=== PATIENT | female | born 1965 | race Caucasian/White ===

== ENCOUNTER 2017-12-02 08:20 | Outpatient (REF) | payer BC, SELFPAY ==
[2017-12-02 14:21] LABS: Absolute Basophil Count 0.06 k/cumm (0.0-0.2); Absolute Eosinophil Count 0.13 k/cumm (0.0-0.7); Absolute Lymphocyte Count 3.01 k/cumm (1.2-3.4); Absolute Monocyte Count 0.95 k/cumm (0.11-0.7); Basophils % 0.6; Eosinophils % 1.3; HCT 43.5 % (36.0-46.0); HGB 14.5 g/dL (12.0-15.5); Lymphocytes % 30.6; Mean Corp. HGB Concentration 33.3 g/dL (32.0-36.0); Mean Corpuscular Hemoglobin 30.3 pg (27.0-33.0); Mean Platelet Volume 10.9 fL (8.0-11.0); Monocytes % 9.6; Neutrophils % 56.9; Platelet Count 290 x1000/uL (130-400); RBC 4.78 m/cumm (4.00-5.20); White Blood Cell Count 9.85 k/cumm (4.4-10.8)
[2017-12-02 14:29] LABS: ALT 185 U/L (12-78); AST 73 U/L (15-37); Albumin 3.6 g/dL (3.4-5.0); Alkaline Phosphatase 113 U/L (46-116); Anion Gap 10.9 mmol/L (3-11); BUN 21 mg/dL (7-18); Bilirubin, Total 0.4 mg/dL (0.2-1.0); CO2 24.1 mmol/L (21.0-32.0); CREATININE 1.08 mg/dL (0.55-1.02); Calcium 8.9 mg/dL (8.5-10.1); Chloride 105 mmol/L (98-107); Cholesterol 283 mg/dL (50-200); Estimated GFR 53.28 (mL/min/1.73m2); Glucose 108 mg/dL (70-100); HDL Cholesterol 42 mg/dL (40-60); LDL CHOLESTEROL 174 mg/dL (<100); Potassium 4.4 mmol/L (3.5-5.1); Sodium 140 mmol/L (136-145); Triglyceride 430 mg/dL (30-150)
[2017-12-03 10:57] LABS: Hepatitis C Ab w Rflx HCV PCR Negative (NEGAT)
== END 2017-12-02 08:40 ==
LOC: NCHCN 08:20
PROVIDERS: PCP Family Medicine; Visit Provider Nurse Practitioner
DX: Z00.00 Encounter for general adult medical examination without abnormal findings (principal); Z13.220 Encounter for screening for lipoid disorders; Z11.59 Encounter for screening for other viral diseases; M79.18 Myalgia, other site
CPT/HCPCS: 80053; 80061; 83721; 86803; 85025

== ENCOUNTER 2017-12-17 09:51 | Outpatient (REF) | payer BC, SELFPAY ==
[2017-12-17 16:35] LABS: Iron 73 ug/dL (50-175); Total Iron Binding Capacity 293 ug/dL (250-450); Transferrin Sat 25 % (15-50)
[2017-12-17 16:51] LABS: ALT 97 U/L (12-78); AST 46 U/L (15-37); Alkaline Phosphatase 107 U/L (46-116); Anion Gap 10.2 mmol/L (3-11); BUN 20 mg/dL (7-18); Bilirubin, Total 0.5 mg/dL (0.2-1.0); CO2 26.8 mmol/L (21.0-32.0); CREATININE 1.09 mg/dL (0.55-1.02); Calcium 9.3 mg/dL (8.5-10.1); Chloride 102 mmol/L (98-107); Estimated GFR 52.71 (mL/min/1.73m2); Ferritin 377 ng/mL (8-388); Glucose 98 mg/dL (70-100); Potassium 4.1 mmol/L (3.5-5.1); Sodium 139 mmol/L (136-145); TSH (W/Ref FT4) 2.31 uIU/mL (0.358-3.74); Total Protein 7.3 g/dL (6.4-8.2)
[2017-12-20 11:26] LABS: HBs Antibody, Quant <3.1 mIU/mL; Hepatitis B Surface Ab Negative; Hepatitis B Surface Ag Negative (NEGAT)
[2017-12-20 11:29] LABS: Hep B Core Antibody Negative (NEGAT)
== END 2017-12-17 10:11 ==
LOC: NCHCN 09:51
PROVIDERS: PCP Family Medicine; Visit Provider Nurse Practitioner
DX: R79.89 Other specified abnormal findings of blood chemistry (principal)
CPT/HCPCS: 80053; 86704; 86706; 87340; 82728; 83540; 83550; 84443

== ENCOUNTER 2017-12-23 00:27 | Outpatient (CLI) | payer BC, SELFPAY ==
--- NOTE | 2017-12-23 07:30 | DI.US_ITS ---
SYMPTOM/DIAGNOSIS: ELEVATED LFT'S,R79.89 ABDOMEN ULTRASOUND: The aorta and vena cava are normal. The liver measures 13.8 cm. in maximal diameter and is echogenic. The portal vein is intact. The patient is status post cholecystectomy. The common duct caliber is 6.1 mm. The pancreas is intact. The spleen is intact. The right kidney measures 11.4 cm. The left kidney measures 11.1 cm. There are multiple parapelvic cysts. SUMMARY: Findings consistent with a fatty liver. Patient is status post cholecystectomy. The caliber of the common duct is presumably on a post surgical basis. Nil else.
== END 2017-12-23 00:47 ==
PROVIDERS: PCP Family Medicine; Visit Provider Nurse Practitioner
DX: R79.89 Other specified abnormal findings of blood chemistry (principal); K76.0 Fatty (change of) liver, not elsewhere classified; Z90.49 Acquired absence of other specified parts of digestive tract
CPT/HCPCS: 76700

== ENCOUNTER 2018-01-14 13:09 | Outpatient (REF) | payer BC, SELFPAY ==
[2018-01-14 13:55] LABS: ALT 103 U/L (12-78); AST 37 U/L (15-37); Alkaline Phosphatase 115 U/L (46-116); Anion Gap 9.6 mmol/L (3-11); BUN 20 mg/dL (7-18); Bilirubin, Total 0.4 mg/dL (0.2-1.0); CO2 26.4 mmol/L (21.0-32.0); CREATININE 0.92 mg/dL (0.55-1.02); Calcium 9.1 mg/dL (8.5-10.1); Chloride 103 mmol/L (98-107); Glucose 104 mg/dL (70-100); Potassium 4.2 mmol/L (3.5-5.1); Sodium 139 mmol/L (136-145); Total Protein 7.2 g/dL (6.4-8.2)
== END 2018-01-14 13:29 ==
LOC: NCHCN 13:09
PROVIDERS: PCP Family Medicine; Visit Provider Nurse Practitioner
DX: K76.0 Fatty (change of) liver, not elsewhere classified (principal)
CPT/HCPCS: 80053

== ENCOUNTER 2018-03-21 12:27 | Outpatient (REF) | payer BC, SELFPAY ==
[2018-03-21 13:38] LABS: ALT 41 U/L (12-78); AST 22 U/L (15-37); Albumin 3.5 g/dL (3.4-5.0); Alkaline Phosphatase 91 U/L (46-116); Bilirubin, Total 0.3 mg/dL (0.2-1.0); Total Protein 6.7 g/dL (6.4-8.2)
== END 2018-03-21 12:47 ==
LOC: LBN 12:27
PROVIDERS: PCP Family Medicine; Visit Provider Nurse Practitioner
DX: K76.0 Fatty (change of) liver, not elsewhere classified (principal); R79.89 Other specified abnormal findings of blood chemistry
CPT/HCPCS: 80076

== ENCOUNTER 2018-06-30 01:32 | Outpatient (CLI) | payer BC, SELFPAY ==
--- NOTE | 2018-06-30 10:52 | DI.MAMMO_ITS ---
SYMPTOMS/DIAGNOSIS: SCREENING, Z12.39 MAMMOGRAMS: Mammograms were interpreted according to the usual protocol including computer analysis with CAD system, tomosynthesis and C view imaging. The breasts are of moderate density with fairly symmetrical distribution of fibroglandular tissue. No dominant mass or clumped microcalcification is identified in either breast. Areas of asymmetric density in the upper outer quadrant of each breast appear unchanged in comparison with in comparison with previous examination of June 2017. CONCLUSION: No specific evidence of malignancy at this time. Routine screening examinations are suggested at yearly intervals in this age group according to the ACS/ACR guidelines. Category 1, breast density category B. MQSA ASSESSMENT OF FINDINGS: Negative. Category 1. Patient will receive a letter notifying them of these results. BI-RADS category B. There are scattered areas of fibroglandular density.
== END 2018-06-30 01:52 ==
PROVIDERS: PCP Family Medicine; Visit Provider Nurse Practitioner Family
DX: Z12.31 Encounter for screening mammogram for malignant neoplasm of breast (principal)
CPT/HCPCS: 77063; 77067

== ENCOUNTER 2020-02-22 14:11 | Outpatient (REF) | payer MEDICAID, SELFPAY ==
[2020-02-22 16:26] LABS: Hemoglobin A1C 5.4 % (<5.7)
[2020-02-22 16:32] LABS: ALT 33 U/L (14-59); AST 19 U/L (15-37); Calculated LDL 80 mg/dL (<100); Cholesterol 160 mg/dL (<200); HDL Cholesterol 56 mg/dL (40-60); Triglyceride 120 mg/dL (<150)
== END 2020-02-22 14:31 ==
LOC: NCHCN 14:11
PROVIDERS: PCP Family Medicine; Visit Provider Nurse Practitioner Family
DX: R73.03 Prediabetes (principal); E78.5 Hyperlipidemia, unspecified
CPT/HCPCS: 80061; 83036; 84450; 84460

== ENCOUNTER 2020-03-26 01:14 | Outpatient (CLI) | payer MEDICAID, SELFPAY ==
--- NOTE | 2020-03-26 10:05 | DI.MAMMO_ITS ---
EXAM: MG MAMMO DIAGNOSTIC BI and U/S breast RT limited CLINICAL HISTORY: DIAGNOSTIC, TENDER, PALPABLE AREA RT BREAST,N64.59. TECHNIQUE: Craniocaudal and mediolateral oblique Full Field Digital Mammography views with Computer Aided Diagnosis followed by Tomosynthesis and right breast ultrasound. COMPARISON: Priors are available for comparison. FINDINGS: Mammography/Tomosynthesis: Masses/Architectural Distortion: None seen. Microcalcifictions: No suspicious pleomorphic-type are seen. Skin Thickening/Nipple Retraction: None. Right breast US: A targeted right breast ultrasound was performed in the area of palpable abnormality . Echotexture: Normal appearance of the glandular tissue. Shadowing: No suspicious foci. Cyst: None. Solid lesions: None seen. Ductal dilation: None. IMPRESSION: 1. No evidence of malignancy is noted. A negative mammogram and ultrasound should not preclude biopsy of a clinically suspicious mass. 2. Unless there is more urgent need, follow-up screening mammography is recommended, as per [place] [employer] guidelines. 3. The findings were discussed with the patient on the date of the examination. BI-RADS Category 1 - Negative Breast Density - Category B - Scattered areas of fibroglandular density Breast density Category C or D implies that the patient has dense breast tissue. Dense breast tissue can make it harder to find cancer on a mammogram. Dense breast tissue is also associated with an incr eased risk of breast cancer. This information about the result of the mammogram report was provided to the patient to raise their awareness. Use this report when you speak with the patient about their risks for breast cancer, which includes their family history. At that time, you may recommend additional screening tests (Ultrasoun d or MRI) as these tests may add significant information. A negative radiographic report should not delay biopsy if a dominant or clinically suspicious mass is present. Up to ten percent of cancers are not identified on mammography. A negative report may reinforce clinical impression. Adenosis and dense breasts may obscure an underlying neoplasm. False positive reports average 6 to 10%. Patient will receive a letter notifying them of these results.
== END 2020-03-26 01:15 ==
LOC: DI 01:14
PROVIDERS: PCP Family Medicine; Visit Provider Nurse Practitioner Family
DX: Z12.31 Encounter for screening mammogram for malignant neoplasm of breast (principal); N64.59 Other signs and symptoms in breast
CPT/HCPCS: 76642; 77062; 77066; G0279

== ENCOUNTER 2021-08-14 11:56 | Outpatient (REF) | payer MEDICAID, SELFPAY ==
--- NOTE | 2021-08-14 10:30 | PAPFT_PTH ---
PATIENT: Evelia Olson LOC: [facility]#:[id number] AGE/SX: 56/F ROOM: RE08/14/[address]: Lesly Cuellar : 1965 BED: DIS: 08/14/2021 SPEC #: [id number] RECD: 08/14/21 18:29 STATUS: CARO REQ #: [id number] NAT: 08/14/21 10:[address]: Lesly Cuellar DEPT: [facility] Cytology RECD BY: Bettina Blackburn ENTERED: 08/14/21 18:29 SP TYPE: PAPFT OTHR DR: Shawanda Wilhelm Tissues: 1 - CX/ENDOCX FOR PAP SMEARS Procedures: PAP THIN PREP/UVM Screening HPV DNA PROBE Comments: [id number]
[2021-08-14 15:37] LABS: HCT 43.7 % (36.0-46.0); HGB 14.5 g/dL (11.2-15.7); MCH 30.1 pg (27.0-33.0); MCHC 33.2 % (32.0-36.0); MCV 91 fL (80-95); MPV 10.7 fL (8.0-11.0); Platelet Count 282 10^3/uL (130-400); RBC 4.81 10^6/uL (3.93-5.22); RDW 12.5 % (11.7-14.6); RDW-SD 41.3 fL; WBC 10.46 10^3/uL (4.4-10.8)
[2021-08-14 16:39] LABS: ALT 79 U/L (14-59); AST 40 U/L (15-37); Albumin 3.9 g/dL (3.4-5.0); Alkaline Phosphatase 81 U/L (46-116); Anion Gap 9.3 mmol/L (3-11); BUN 25 mg/dL (7-18); Bilirubin, Total 0.4 mg/dL (0.2-1.0); CO2 25.7 mmol/L (21.0-32.0); Chloride 103 mmol/L (98-107); Estimated GFR 57.35 (mL/min/1.73m2); Glucose 96 mg/dL (74-106); Potassium 4.4 mmol/L (3.5-5.1); Sodium 138 mmol/L (136-145); Total Protein 6.8 g/dL (6.4-8.2)
[2021-08-14 16:51] LABS: Calculated LDL 165 mg/dL (<100); Cholesterol 251 mg/dL (<200); HDL Cholesterol 46 mg/dL (40-60); Triglyceride 202 mg/dL (<150)
[2021-08-14 16:53] LABS: Hemoglobin A1C 5.8 % (<5.7)
== END 2021-08-14 11:57 | disposition home or self-care (01) ==
LOC: NCHCN 11:56
PROVIDERS: PCP Family Medicine; Visit Provider Nurse Practitioner Family
DX: R73.03 Prediabetes (principal); K76.0 Fatty (change of) liver, not elsewhere classified; E78.5 Hyperlipidemia, unspecified; R79.89 Other specified abnormal findings of blood chemistry; Z00.00 Encounter for general adult medical examination without abnormal findings; Z12.4 Encounter for screening for malignant neoplasm of cervix
CPT/HCPCS: 80053; 80061; 85027; 88142; 83036; 87624

== ENCOUNTER → 2021-08-21 01:41 | Outpatient (CLI) | payer MEDICAID, SELFPAY ==
--- NOTE | 2021-08-21 15:30 | DI.MAMMO_ITS ---
Exam(s) MAMMO SCREENING EXAM: MAMMO SCREENING CLINICAL HISTORY: SCREENING FOR BREAST CA, Z12.39. TECHNIQUE: Bilateral full field digital CC and MLO mammographic images were obtained with 3D tomosyn thesis and utilizing computer aided detection (CAD). COMPARISON: Prior mammograms were reviewed, the most recent being March 2020. FINDINGS: There has been no significant change in the appearance and distribution of the fibroglandular tissue. No new CAD designations. Asymmetric tissue in the upper-outer quadrant right breast is unchanged There are no new spiculated masses nor malignant appearing microcalcification groups. There is no significant architectural distortion nor skin thickening-retraction. IMPRESSION: No radiographic evidence of malignancy. BI-RADS Category 1 - Negative Breast Density - Category B - Scattered areas of fibroglandular density Breast density Category C or D implies that the patient has dense breast tissue. Dense breast tissue can make it harder to find cancer on a mammogram. Dense breast tissue is also associated with an incr eased risk of breast cancer. This information about the result of the mammogram report was provided to the patient to raise their awareness. Use this report when you speak with the patient about their risks for breast cancer, which includes their family history. At that time, you may recommend additional screening tests (Ultrasoun d or MRI) as these tests may add significant information. A negative radiographic report should not delay biopsy if a dominant or clinically suspicious mass is present. Up to ten percent of cancers are not identified on mammography. A negative report may reinforce clinical impression. Adenosis and dense breasts may obscure an underlying neoplasm. False positive reports average 6 to 10%. Patient will receive a letter notifying them of these results.
== END ==
PROVIDERS: PCP Family Medicine; Visit Provider Nurse Practitioner Family
DX: Z12.31 Encounter for screening mammogram for malignant neoplasm of breast (principal)
CPT/HCPCS: 77063; 77067

== ENCOUNTER 2022-06-30 18:28 | Outpatient (REF) | payer MEDICAID, SELFPAY ==
[2022-06-30 15:27] LABS: HCT 44.5 % (36.0-46.0); HGB 14.6 g/dL (11.2-15.7); MCH 29.3 pg (27.0-33.0); MCHC 32.8 % (32.0-36.0); MCV 89 fL (80-95); MPV 10.5 fL (8.0-11.0); Platelet Count 299 10^3/uL (130-400); RBC 4.98 10^6/uL (3.93-5.22); RDW 12.1 % (11.7-14.6); RDW-SD 39.6 fL; WBC 11.56 10^3/uL (4.4-10.8)
[2022-06-30 16:17] LABS: ALT 88 U/L (14-59); AST 39 U/L (15-37); Albumin 3.9 g/dL (3.4-5.0); Alkaline Phosphatase 102 U/L (46-116); Anion Gap 11.4 mmol/L (3-11); BUN 18 mg/dL (7-18); Bilirubin, Total 0.6 mg/dL (0.2-1.0); CO2 24.6 mmol/L (21.0-32.0); CREATININE 0.9 mg/dL (0.55-1.02); Calcium 9.1 mg/dL (8.5-10.1); Chloride 105 mmol/L (98-107); Estimated GFR 74.57 (mL/min/1.73m2); Glucose 104 mg/dL (74-106); Potassium 4.3 mmol/L (3.5-5.1); Sodium 141 mmol/L (136-145); Total Protein 7.2 g/dL (6.4-8.2)
[2022-06-30 17:20] LABS: Iron 63 ug/dL (50-170); Total Iron Binding Capacity 329 ug/dL (250-450); Transferrin Sat 19 % (15-50)
== END 2022-06-30 18:29 | disposition home or self-care (01) ==
LOC: NCHCN 18:28
PROVIDERS: PCP Family Medicine; Visit Provider Nurse Practitioner Family
DX: K76.0 Fatty (change of) liver, not elsewhere classified (principal); E66.8 Other obesity
CPT/HCPCS: 80053; 85027; 83540; 83550

== ENCOUNTER 2022-07-23 01:58 | Outpatient (CLI) | payer MEDICAID, SELFPAY ==
--- NOTE | 2022-07-23 | DI.US_ITS ---
Exam(s) US SOFT TISS ABD WALL/LOW BACK EXAM: US SOFT TISS ABD WALL/LOW BACK CLINICAL HISTORY: LYMPHADENOPATHY R59.0 BILAT LOWER BACK, MASS. TECHNIQUE: Ultrasound was performed using standard protocol. COMPARISON: No exams were available for comparison FINDINGS: Sonographic assessment utilizing grayscale and color Doppler imaging was performed and targeted to th e area of clinical concern. No cystic or solid masses identified. IMPRESSION: Negative targeted ultrasound. DATA REPOSITORY:
== END 2022-07-23 02:18 ==
LOC: DI 01:58
PROVIDERS: PCP Family Medicine; Visit Provider Nurse Practitioner Family
DX: R59.0 Localized enlarged lymph nodes (principal); M54.50 Low back pain, unspecified
CPT/HCPCS: 76705

== ENCOUNTER → 2022-09-23 01:49 | Outpatient (CLI) | payer MEDICAID, SELFPAY ==
--- NOTE | 2022-09-23 12:35 | DI.MAMMO_ITS ---
Exam(s) MAMMO SCREENING EXAM: MAMMO SCREENING CLINICAL HISTORY: SCREENING FOR BREAST CANCER Z12.39 Z12.31 TECHNIQUE: Mammograms were interpreted according to the usual protocol including computer analysis w [employer] CAD system, tomosynthesis and C-view imaging. COMPARISON: 2014 through 2021 FINDINGS: The breasts are composed of mainly fatty density , Breast Density category A. No suspicious masses or suspicious microcalcifications are seen. No skin thickening or abnormal axillary lymph nodes are seen. There has been no significant change from prior exams. IMPRESSION: BI-RADS Category 1, Negative mammogram Yearly screening mammography is recommended. Breast Density - Category A, fatty density. A negative radiographic report should not delay biopsy if a dominant or clinically suspicious mass is present. Up to ten percent of cancers are not identified on mammography. A negative report may reinforce clinical impression. Adenosis and dense breasts may obscure an underlying neoplasm. False positive reports average 6 to 10%. Patient will receive a letter notifying them of these results.
== END ==
PROVIDERS: PCP Family Medicine; Visit Provider Nurse Practitioner Family
DX: Z12.31 Encounter for screening mammogram for malignant neoplasm of breast (principal)
CPT/HCPCS: 77063; 77067

== ENCOUNTER → 2022-12-29 00:28 | Outpatient (CLI) | payer MEDICAID, SELFPAY ==
--- NOTE | 2022-12-29 09:31 | DI.RAD_ITS ---
Exam(s) XR KNEE RT 3V AP,LAT,DRISS EXAM: XR KNEE RT 3V AP,LAT,DRISS CLINICAL HISTORY: M25.569 Chronic knee pain bilat. TECHNIQUE: 2D digital imaging was performed. Three views. COMPARISON: No exams were available for comparison FINDINGS: BONES: No acute fracture is present. No bony destructive lesion is seen. JOINTS: The knee is normally aligned. No joint effusion is seen. Mild spurring at the articular aspe ct of the patella. SOFT TISSUE: Normal. IMPRESSION: Mild patellofemoral degenerative changes. DATA REPOSITORY: RADIATION DOSE DELIVERED:
--- NOTE | 2022-12-29 09:34 | DI.RAD_ITS ---
Exam(s) XR KNEE LT 3V AP,LAT,DRISS EXAM: XR KNEE LT 3V AP,LAT,DRISS CLINICAL HISTORY: M.569 Chronic bilat knee pain. TECHNIQUE: 2D digital imaging was performed. Three views. COMPARISON: CR XR KNEE RT 3V AP,LAT,DRISS from 12/29/2022 FINDINGS: BONES: No acute fracture is present. No bony destructive lesion is seen. JOINTS: The knee is normally aligned. No joint effusion is seen. Slight narrowing medial femoral ti bial joint space. Minimal spurring at the articular aspect of the patella. SOFT TISSUE: Normal. IMPRESSION: Mild degenerative changes. DATA REPOSITORY: RADIATION DOSE DELIVERED:
== END ==
PROVIDERS: PCP Family Medicine; Visit Provider Nurse Practitioner Family
DX: M17.0 Bilateral primary osteoarthritis of knee (principal)
CPT/HCPCS: 73562

== ENCOUNTER 2024-01-11 01:21 | Outpatient (CLI) | payer MEDICAID, SELFPAY ==
--- NOTE | 2024-01-11 | DI.US_ITS ---
Exam(s) US ABDOMEN LIMITED EXAM: US ABDOMEN LIMITED CLINICAL HISTORY: Steatosis of liver, K76.0, fatty change of liver not elsewhere classified TECHNIQUE: Ultrasound abdomen performed using standard protocol. COMPARISON: US US ABDOMEN from 12/23/2017 FINDINGS: PANCREAS: Normal where visualized. LIVER: There is diffuse increased echogenicity of the liver consistent with fatty infiltration. Hepa topetal flow in the Portal Vein. The liver measures in 18.1 cm length. No evidence of a hepatic mass. GALLBLADDER:Status post cholecystectomy. BILIARY SYSTEM: Common bile duct measures up to 1.0 mm. This can be seen in post cholecystectomy pat ients.. No intrahepatic biliary ductal dilation. RIGHT KIDNEY: Kidney is normal in size. No evidence of renal calculi. No evidence of hydronephrosis. No renal mass or cyst identified. In the renal pelvis there are few anechoic round areas present lik fadi reflecting parapelvic cysts. ASCITES: None seen. ABDOMINAL AORTA AND IVC: Visualized portions normal caliber. IMPRESSION: Mild hepatomegaly and hepatic steatosis. DATA REPOSITORY:
--- NOTE | 2024-01-11 08:16 | DI.MAMMO_ITS ---
Exam(s) MAMMO SCREENING EXAM: MAMMO SCREENING CLINICAL HISTORY: Screening, Z12.31 TECHNIQUE: Bilateral full field digital CC and MLO mammographic images were obtained with 3D tomosyn thesis and utilizing computer aided detection (CAD). COMPARISON: Available for comparison. FINDINGS: Masses/Architectural Distortion: None seen. Microcalcifications: No suspicious pleomorphic-type are seen. Skin Thickening/Nipple Retraction: None. IMPRESSION: 1. No significant interval change with no specific features of malignancy noted. 2. Unless there is more urgent need, screening mammography is recommended, as per [place] [employer] guidelines. BI-RADS Category 1 - Negative Breast Density - Category A - Almost entirely fatty Breast density category C or D implies that the patient has dense breast tissue. Dense breast tissue is very common and is not abnormal but dense breast tissue can make it harder to find cancer on a ma mmogram. Also, dense breast tissue may increase their breast cancer risk. This information about the result of the mammogram report was provided to the patient to raise their awareness. Use this report when you speak with the patient about their risks for breast cancer, which includes their family hist ory. At that time, you may recommend for more screening tests (Ultrasound or MRI) as they might be us eful based on their risk. A negative radiographic report should not delay biopsy if a dominant or clinically suspicious mass is present. Up to ten percent of cancers are not identified on mammography. A negative report may reinforce clinical impression. Adenosis and dense breasts may obscure an underlying neoplasm. False positive reports average 6 to 10%. Patient will receive a letter notifying them of these results.
== END 2024-01-11 01:41 ==
LOC: DI 01:24
PROVIDERS: PCP Family Medicine; Visit Provider Nurse Practitioner Family
DX: Z12.31 Encounter for screening mammogram for malignant neoplasm of breast (principal); K76.0 Fatty (change of) liver, not elsewhere classified
CPT/HCPCS: 77063; 77067; 76705

== ENCOUNTER 2024-05-19 01:08 | Outpatient (CLI) | payer MEDICAID, SELFPAY ==
[2024-05-19 08:18] LABS: HCT 45.9 % (36.0-46.0); HGB 15.2 g/dL (11.2-15.7); MCH 29.7 pg (27.0-33.0); MCHC 33.1 % (32.0-36.0); MCV 90 fL (80-95); MPV 9.6 fL (8.0-11.0); Platelet Count 320 10^3/uL (130-400); RBC 5.12 10^6/uL (3.93-5.22); RDW 12.1 % (11.7-14.6); RDW-SD 40.2 fL; WBC 8.24 10^3/uL (4.4-10.8)
[2024-05-19 08:34] LABS: Hemoglobin A1C 5.7 % (<5.7)
[2024-05-19 08:46] LABS: D-Dimer 578 ng/mlFEU (<500)
[2024-05-19 08:48] LABS: ALT 61 U/L (14-59); AST 29 U/L (15-37); Albumin 3.9 g/dL (3.4-5.0); Alkaline Phosphatase 94 U/L (46-116); Anion Gap 8.5 mmol/L (3-11); BUN 25 mg/dL (7-18); Bilirubin, Total 0.7 mg/dL (0.2-1.0); CO2 29.5 mmol/L (21.0-32.0); CREATININE 1.1 mg/dL (0.55-1.02); Calcium 10.6 mg/dL (8.5-10.1); Calculated LDL 122 mg/dL (<100); Chloride 105 mmol/L (98-107); Cholesterol 229 mg/dL (<200); Estimated GFR 57.88 (mL/min/1.73m2); Glucose 107 mg/dL (74-106); HDL Cholesterol 44 mg/dL (>or=50); Potassium 4.2 mmol/L (3.5-5.1); Sodium 143 mmol/L (136-145); Total Protein 7.2 g/dL (6.4-8.2); Triglyceride 317 mg/dL (<150)
== END 2024-05-19 01:09 | disposition home or self-care (01) ==
LOC: LBO 01:08
PROVIDERS: PCP Family Medicine; Visit Provider Nurse Practitioner Family
DX: Z00.00 Encounter for general adult medical examination without abnormal findings (principal); R73.03 Prediabetes; M79.604 Pain in right leg
CPT/HCPCS: 36415; 80053; 80061; 85027; 83036; 85379

== ENCOUNTER 2024-06-22 10:30 | Outpatient (REF) | payer MEDICAID, SELFPAY ==
[2024-06-22 14:59] LABS: Alkaline Phosphatase 106 U/L (46-116); BUN 17 mg/dL (7-18); Bilirubin, Total 0.4 mg/dL (0.2-1.0); CO2 22.8 mmol/L (21.0-32.0); CREATININE 0.9 mg/dL (0.55-1.02); Calcium 9.3 mg/dL (8.5-10.1); Chloride 107 mmol/L (98-107); Estimated GFR 73.64 (mL/min/1.73m2); Glucose 116 mg/dL (74-106); Potassium 4.7 mmol/L (3.5-5.1); Sodium 140 mmol/L (136-145); Total Protein 6.9 g/dL (6.4-8.2)
[2024-06-22 15:00] LABS: ALT 72 U/L (14-59); AST 36 U/L (15-37); Anion Gap 10.2 mmol/L (3-11)
[2024-06-22 23:13] LABS: Parathyroid Hormone,Intact 69 pg/mL (19-88)
== END 2024-06-22 10:31 | disposition home or self-care (01) ==
LOC: NCHCN 10:30
PROVIDERS: PCP Family Medicine; Visit Provider Nurse Practitioner Family
DX: E83.52 Hypercalcemia (principal)
CPT/HCPCS: 80053; 83970

== ENCOUNTER 2024-12-28 16:50 | Outpatient (REF) | payer MEDICAID, SELFPAY ==
[2024-12-28 20:40] LABS: HCT 43.6 % (36.0-46.0); HGB 14.8 g/dL (11.2-15.7); MCH 30.6 pg (27.0-33.0); MCHC 33.9 % (32.0-36.0); MCV 90 fL (80-95); MPV 10.8 fL (8.0-11.0); Platelet Count 276 10^3/uL (130-400); RBC 4.84 10^6/uL (3.93-5.22); RDW 12.1 % (11.7-14.6); RDW-SD 39.9 fL; WBC 10.53 10^3/uL (4.4-10.8)
[2024-12-28 20:57] LABS: ALT 97 U/L (10-49); AST 54 U/L (<34); Albumin 4.5 g/dL (3.4-5.0); Alkaline Phosphatase 101 U/L (46-116); Anion Gap 8.5 mmol/L (3-11); BUN 22 mg/dL (9-23); Bilirubin, Total 0.50 mg/dL (0.2-1.2); CO2 24.5 mmol/L (20.0-31.0); Calcium 9.6 mg/dL (8.3-10.6); Chloride 107 mmol/L (98-107); Glucose 94 mg/dL (74-106); Potassium 4.5 mmol/L (3.5-5.1); Sodium 140 mmol/L (136-145); Total Protein 7.1 g/dL (5.7-8.2)
== END 2024-12-28 16:51 | disposition home or self-care (01) ==
LOC: NCHCN 16:50
PROVIDERS: PCP Family Medicine; Visit Provider Nurse Practitioner Family
DX: F10.10 Alcohol abuse, uncomplicated (principal)
CPT/HCPCS: 80053; 85027

== ENCOUNTER → 2025-01-31 00:06 | Outpatient (CLI) | payer MEDICAID, SELFPAY ==
--- NOTE | 2025-01-31 | DI.US_ITS ---
Exam(s) US ABDOMEN LIMITED EXAM: US ABDOMEN LIMITED CLINICAL HISTORY: HEPATIC STEATOSIS FATTY LIVER K76.0 TECHNIQUE: Ultrasound of the right upper quadrant performed using standard protocol. COMPARISON: US US ABDOMEN from 12/23/2017 US US ABDOMEN LIMITED from 01/11/2024 FINDINGS: LIVER: Mildly increased size, 17.6 cm in length. Moderately increased echogenicity, with decreased through transmission. Mild coarsening of liver echotexture. No visible change from prior exams. No focal liver lesions are seen. GALLBLADDER: Cholecystectomy. BILIARY SYSTEM: No intrahepatic or extrahepatic biliary ductal dilation. RIGHT KIDNEY: Normal size. No evidence of renal calculi. No evidence of hydronephrosis. No suspicious renal mass. Small parapelvic cysts again noted. PANCREAS: Normal where visualized. ABDOMINAL AORTA AND IVC: Visualized portions normal caliber. ASCITES: None seen. IMPRESSION: Stable moderate hepatic steatosis.. DATA REPOSITORY:
== END ==
PROVIDERS: PCP Family Medicine; Visit Provider Nurse Practitioner Family
DX: K76.0 Fatty (change of) liver, not elsewhere classified (principal)
CPT/HCPCS: 76705